=== PATIENT | female | born 1995 | race Caucasian/White ===

== ENCOUNTER 2019-07-06 03:50 | Emergency (ER) | payer OTHER ==
[~2019-07-06] VITALS: Ht 170.2 cm; Wt 61.2 kg
[~2019-07-06 03:50] MED LIST: YASMIN 28 TABL1 EACH
[2019-07-06] MEDS ORDERED: VYVANSE70 MG PO (04:03)
[2019-07-06 04:30] LABS: URINE BILIRUBIN NEGATIVE (Negative); URINE BLOOD NEGATIVE (Negative); URINE CLARITY CLEAR; URINE COLOR YELLOW; URINE GLUCOSE-RANDOM NEGATIVE (Negative); URINE KETONES NEGATIVE (Negative); URINE LEUKOCYTES-REFLEX NEGATIVE (Negative); URINE NITRITE-REFLEX NEGATIVE (Negative); URINE PROTEIN NEGATIVE (Negative); URINE SPECIFIC GRAVITY 1.015 (1.005-1.030); URINE UROBILINOGEN 0.2 E.U./dl (0.2-1.0)
[2019-07-06 05:42] VITALS: BP 110/78
== END 2019-07-06 05:42 | disposition home or self-care (01) ==
LOC: M.ERS 03:50
PROVIDERS: Emergency Medicine
DX: M54.5 Low back pain (principal)